=== PATIENT | female | born 1995 | race Caucasian/White ===

== ENCOUNTER 2017-02-03 06:56 | Emergency (ER) | payer SELFPAY ==
[2017-02-03 07:21] VITALS: BP 129/74; PULSE 63; TEMP 98; BMI 23.0
== END 2017-02-03 07:41 | disposition left against medical advice (07) ==
LOC: JER 06:56
DX: Z53.21 Procedure and treatment not carried out due to patient leaving prior to being seen by health care provider (principal)
CPT/HCPCS: 99281-25